=== PATIENT | female | born 1965 | race Caucasian/White ===

== ENCOUNTER 2020-06-12 17:34 | Emergency (ER) | payer OTHER ==
--- NOTE | 2020-06-12 18:22 | EDM.PDOC ---
ED HPI GENERAL MEDICAL PROBLEM - General Stated Complaint: PASSED OUT THIS MORNING Time Seen by Provider: 06/12/20 18:05 Source of Information: Reports: Patient History Limitations: Reports: No Limitations - History of Present Illness INITIAL COMMENTS - FREE TEXT/NARRATIVE: c/o near syncope and fatigue lives alone, not working, talks to her children daily took a hot shower this AM, felt lightheaded and nausea as she was getting out, bathroom is narrow, leaned on the noonan, then said on the commode to avoid passing out, says she said on the toilet a long time since she was so weak, did not fall off the toilet, did lean against the wall, no injury [facility] which she did when a ride was available states she has been very tired today, no energy felt much better yesterday stopped taking gabapentin and amitriptyline 2w ago, which had been rx'ed for her chronic low back and sciatica pain (down RLE) that she has had for 13y still has the pain, not gotten worse, sleeps usually 4-6 hr/night no previous syncope no previous visits here, no other labs in [place] [facility] [place] alert and conversant here, sits and moves easily altho did accept assist x 1 when standing for orthostatics, no sway with stand, ormal speech PMH: sciatica, chronic back and leg meds: only vit D and calcium SH: 3 children, 5 grandchildren, oldest child is a dtr who lives [address]h south in [place], closest child, friend is Aaron who is in ED and drove pt here to bed at 10:30p, up at 8:30p, took awhile to fall asleep, was up once to go to bathroom before she fell asleep, says she had only slept 4-6 hours the night before as usual had 5 min of vague CP this afternoon - Related Data Allergies Allergy/AdvReac Type Severity Reaction Status Date / Time No Known Allergies Allergy Verified 06/12/20 17:57 Home Meds: Home Meds Calcium Carbonate [Calcium] 600 mg PO DAILY 06/12/20 [History] Cholecalciferol (Vitamin D3) [Vitamin D3] 1,000 unit PO BID 02/25/21 [History] ED ROS GENERAL - Review of Systems Review Of Systems: See Below Constitutional: Reports: Weakness, Fatigue. Denies: Fever, Chills, Night Sweats, Diaphoresis, Decreased Appetite HEENT: Reports: No Symptoms Respiratory: Reports: No Symptoms Cardiovascular: Reports: Lightheadedness, Syncope. Denies: Chest Pain, Dyspnea on Exertion, Edema Endocrine: Reports: No Symptoms GI/Abdominal: Reports: Nausea. Denies: Abdominal Pain : Reports: No Symptoms Musculoskeletal: Reports: No Symptoms Skin: Reports: No Symptoms Neurological: Reports: Dizziness, Syncope, Weakness. Denies: Confusion, Headache, Numbness, Paresthesia, Pre-Existing Deficit, Tingling, Trouble Speaking Psychiatric: Reports: No Symptoms. Denies: Anxiety Hematologic/Lymphatic: Reports: No Symptoms Immunologic: Reports: No Symptoms - Physical Exam Exam: See Below Exam Limited By: No Limitations General Appearance: Alert, WD/WN, No Apparent Distress Eye Exam: Bilateral Eye: EOMI, PERRL Ears: Normal Canal, Hearing Grossly Normal Nose: Normal Inspection, Normal Mucosa, No Blood Throat/Mouth: Normal Inspection, Normal Lips, Normal Teeth, Normal Gums, Normal Oropharynx, Normal Voice, No Airway Compromise Head Exam: Atraumatic, Normocephalic Neck: Normal Inspection, Supple, Non-Tender Respiratory/Chest: No Respiratory Distress, Lungs Clear, No Accessory Muscle Use, Chest Non-Tender Cardiovascular: Regular Rate, Rhythm, No Edema, No Gallop, No Murmur GI/Abdominal: Soft, Non-Tender, No Distention Neuro Exam (Abbreviated): Alert, Oriented, CN II-XII Intact, Normal Cognition, Normal Gait, No Motor/Sensory Deficits, Other (normal speech, 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, SLR 60 degrees b/l without pain or limitation) Extremities: Normal Inspection, Normal Range of Motion, Non-Tender, No Pedal Edema Psychiatric: Normal Affect, Normal Mood Skin Exam: Warm, Dry, Intact, Normal Color, No Rash Course - Vital Signs Last Recorded V/S: Last Vital Signs Temp 36.7 C 06/12/20 19:20 Pulse 76 06/12/20 19:20 Resp 18 06/12/20 19:20 BP 137/65 06/12/20 19:20 Pulse Ox 99 06/12/20 19:20 Orthostatic Blood Pressure [ 143/91 Standing] Orthostatic Blood Pressure [ 131/87 Sitting] Orthostatic Blood Pressure [ 135/73 Supine] - Orders/Labs/Meds Orders: Active Orders 24 hr Category Date Time Status EKG Documentation Completion [RC] ASDIRECTED Care 06/12/20 18:11 Ordered Chest 2V [CR] Stat Exams 06/12/20 18:37 Ordered Head wo Cont [CT] Stat Exams 06/12/20 18:38 Ordered EKG 12 Lead [EK] Routine Ther 06/12/20 18:11 Ordered Labs: Laboratory Tests 06/12/20 06/12/20 06/12/20 Range/Units 17:55 17:55 17:55 WBC 8.5 (3.0-10.3) x10-3/uL RBC 4.96 (3.60-5.20) x10(6)uL Hgb 14.9 (11.4-15.5) g/dL Hct 45.3 (34.2-48.2) % MCV 91.5 (76.7-100.5) fL MCH 30.0 (23.9-33.9) pg MCHC 32.8 (31.9-34.8) g/dL RDW 12.2 L (12.3-16.5) % Plt Count 256 (151-488) x10(3)uL MPV 8.7 (7.1-12.4) fL Neut % (Auto) 52.8 (30.8-76.2) % Lymph % (Auto) 38.2 (18.4-52.1) % [place] % (Auto) 6.6 (4.4-15.7) % Eos % (Auto) 1.8 (0.6-8.1) % Baso % (Auto) 0.6 (0.2-1.5) % Neut # (Auto) 4.5 (1.5-6.3) x10-3/uL Lymph # (Auto) 3.3 (1.0-4.4) x10-3/uL [place] # (Auto) 0.6 (0.3-1.0) x10-3/uL Eos # (Auto) 0.2 (0.0-0.8) x10-3/uL Baso # (Auto) 0.1 (0.0-0.1) x10-3/uL Sodium 139 (135-145) mmol/L Potassium 3.9 (3.5-5.3) mmol/L Chloride 102 (100-110) mmol/L Carbon Dioxide 30 (21-32) mmol/L BUN 13 (7-18) mg/dL Creatinine 0.8 (0.55-1.02) mg/dL Est Cr Clr Drug Dosing 63.58 mL/min Estimated GFR (MDRD) > 60 (>60) BUN/Creatinine Ratio 16.3 (9-20) Glucose 90 (80-116) mg/dL Calcium 8.8 (8.6-10.2) mg/dL Total Bilirubin 0.3 (0.1-1.3) mg/dL AST 25 (5-25) IU/L ALT 46 H (12-36) U/L Alkaline Phosphatase 113 H (56-112) IU/L Troponin I 4.1 (4.0-60.3) pg/mL C-Reactive Protein < 0.2 L (0.5-0.9) mg/dL Total Protein 7.7 (6.0-8.0) g/dL Albumin 3.8 (3.5-5.2) g/dL Globulin 3.9 g/dL Albumin/Globulin Ratio 1.0 TSH, Ultra Sensitive 1.65 (0.36-3.74) IU/mL Urine Color (YELLOW) Urine Appearance (CLEAR) Urine pH (5.0-6.5) Ur Specific [place] (1.010-1.025) Urine Protein (NEGATIVE) mg/dL Urine Glucose (UA) (NORMAL) mg/dL Urine Ketones (NEGATIVE) mg/dL Urine Occult Blood (NEGATIVE) Urine Nitrite (NEGATIVE) Urine Bilirubin (NEGATIVE) Urine Urobilinogen (NEGATIVE) mg/dL Ur Leukocyte Esterase (NEGATIVE) Urine RBC (0-5) Urine WBC (0-5) Ur Squamous Epith Cells (NS,R,O) Urine Bacteria (NS) SARS-CoV-2 RNA (ANTON) (NEGATIVE) 06/12/20 06/12/20 Range/Units 18:40 19:20 WBC (3.0-10.3) x10-3/uL RBC (3.60-5.20) x10(6)uL Hgb (11.4-15.5) g/dL Hct (34.2-48.2) % MCV (76.7-100.5) fL MCH (23.9-33.9) pg MCHC (31.9-34.8) g/dL RDW (12.3-16.5) % Plt Count (151-488) x10(3)uL MPV (7.1-12.4) fL Neut % (Auto) (30.8-76.2) % Lymph % (Auto) (18.4-52.1) % [place] % (Auto) (4.4-15.7) % Eos % (Auto) (0.6-8.1) % Baso % (Auto) (0.2-1.5) % Neut # (Auto) (1.5-6.3) x10-3/uL Lymph # (Auto) (1.0-4.4) x10-3/uL [place] # (Auto) (0.3-1.0) x10-3/uL Eos # (Auto) (0.0-0.8) x10-3/uL Baso # (Auto) (0.0-0.1) x10-3/uL Sodium (135-145) mmol/L Potassium (3.5-5.3) mmol/L Chloride (100-110) mmol/L Carbon Dioxide (21-32) mmol/L BUN (7-18) mg/dL Creatinine (0.55-1.02) mg/dL Est Cr Clr Drug Dosing mL/min Estimated GFR (MDRD) (>60) BUN/Creatinine Ratio (9-20) Glucose (80-116) mg/dL Calcium (8.6-10.2) mg/dL Total Bilirubin (0.1-1.3) mg/dL AST (5-25) IU/L ALT (12-36) U/L Alkaline Phosphatase (56-112) IU/L Troponin I (4.0-60.3) pg/mL C-Reactive Protein (0.5-0.9) mg/dL Total Protein (6.0-8.0) g/dL Albumin (3.5-5.2) g/dL Globulin g/dL Albumin/Globulin Ratio TSH, Ultra Sensitive (0.36-3.74) IU/mL Urine Color Yellow (YELLOW) Urine Appearance Clear (CLEAR) Urine pH 5.0 (5.0-6.5) Ur Specific [place] 1.020 (1.010-1.025) Urine Protein Negative (NEGATIVE) mg/dL Urine Glucose (UA) Normal (NORMAL) mg/dL Urine Ketones Negative (NEGATIVE) mg/dL Urine Occult Blood Negative (NEGATIVE) Urine Nitrite Negative (NEGATIVE) Urine Bilirubin Negative (NEGATIVE) Urine Urobilinogen Normal (NEGATIVE) mg/dL Ur Leukocyte Esterase Negative (NEGATIVE) Urine RBC 0-5 (0-5) Urine WBC 0-5 (0-5) Ur Squamous Epith Cells Occasional (NS,R,O) Urine Bacteria Rare H (NS) SARS-CoV-2 RNA (ANTON) Negative (NEGATIVE) - Re-Assessments/Exams Free Text/Narrative Re-Assessment/Exam: 06/12/20 20:[address] neg, chest 2v neg per radiology EKG wnl not orthostatic labs unremarkable pt may have exhaustion from chronic insomnia and may have been catching up on sleep eating and drinking altho takes hot shower in AM prior to nutrition no evidence of infection or CV/pul concerns no dehydration pt relieved to know tests are fine, agreed to close f/u with PCP and to return to ED if feeling worse or new sxs, friend/industrial truck driver present during discussion Departure - Departure Time of Disposition: 19:55 Disposition: Home, Self-Care 01 Condition: Good Clinical Impression: Near syncope, Fatigue, Insomnia disorder - Discharge Information *PRESCRIPTION DRUG MONITORING PROGRAM REVIEWED*: Not Applicable *COPY OF PRESCRIPTION DRUG MONITORING REPORT IN PATIENT ARIELLE: Not Applicable Instructions: Near-Syncope, Insomnia, Weakness Additional Instructions: Your test and imaging look quite good. If needed, for sleep, take ibuprofen 800 mg or acetaminophen 500 mg 2 tabs at bedtime. See your doctor in the next few days. Return to ED if you are feeling worse or develop new symptoms. Sepsis Event Note (ED) - Focused Exam Vital Signs: Vital Signs Temp Pulse Pulse Resp BP Pulse Ox 06/12/20 19:20 36.7 C 76 18 137/65 99 06/12/20 17:34 36.4 C 103 H 18 135/62 99 - My Orders Last 24 Hours: My Active Orders 06/12/20 18:11 EKG Documentation Completion [RC] ASDIRECTED EKG 12 Lead [EK] Routine 06/12/20 18:37 Chest 2V [CR] Stat 06/12/20 18:38 Head wo Cont [CT] Stat - Assessment/Plan Last 24 Hours: My Active Orders 06/12/20 18:11 EKG Documentation Completion [RC] ASDIRECTED EKG 12 Lead [EK] Routine 06/12/20 18:37 Chest 2V [CR] Stat 06/12/20 18:38 Head wo Cont [CT] Stat
== END 2020-06-12 20:10 | disposition home or self-care (01) ==
LOC: FB.ED 17:34
DX: R55 Syncope and collapse (principal); R53.83 Other fatigue; G47.00 Insomnia, unspecified; Z20.822 Contact with and (suspected) exposure to COVID-19
CPT/HCPCS: 36415; 70450; 71046; 80053; 81001; 84443; 84484; 85025; 86140; 93005; 99283; 99285-25; U0002